=== PATIENT | female | born 1985 | race American Indian/Alaskan Native ===

== ENCOUNTER 2018-11-29 13:19 | Emergency (ER) | payer MEDICAID ==
[2018-11-29] MEDS ORDERED: LACTATED RINGERS 500 ML IV ONE (13:21)
[2018-11-29 13:45] VITALS: BP 101/55
[2018-11-29] MEDS ORDERED: LACTATED RINGERS 1,000 ML IV SCH (14:00)
[2018-11-29] MEDS ORDERED: PROVENTIL IH STA (14:40)
[2018-11-29 14:45] LABS: Bacteria,Urine 1+ /HPF (Negative); Bilirubin,Urine NEG (Negative); Blood,Urine NEG (Negative); Calcium Oxalate Crystals,Urine 1+; Color,Urine Yellow (Yellow); Mucus,Urine FEW /HPF; Protein,Urine <15 mg/dL mg/dL (Negative)
--- NOTE | 2018-11-29 14:49 | Emergency Department Report ---
Blank Doc - Documentation Documentation: 33 y/o female presents to Ed c/o wheezing, cough with green mucus and coryza. NO abdominal pain or discharge his initial assessment/diagnostic orders/clinical plan/treatment(s) is/are subject to change based on patient's health status, clinical progression and re-assessment by fellow clinical providers in the ED. Further treatment and workup at subsequent clinical providers discretion. Patient/guardians urged not to elope from the ED as their condition may be serious if not clinically assessed and managed. Initial orders include: cxr
--- NOTE | 2018-11-29 16:15 | Emergency Department Report ---
ED General Adult HPI - General Chief complaint: Pain General Time Seen by Provider: 11/29/18 15:27 Source: family Mode of arrival: Wheelchair Limitations: No Limitations - History of Present Illness Initial comments: Patient is a 33-year-old female who is presenting with 3 days of cough cold congestion and sinus tenderness. Patient is 20 weeks was seen to our labor and delivery Center initially and have labor ruled out. Patient is here stating that she's had sinus pressure with a mild cough. Patient also states that she's had 8/10 pain in the mid face. Patient has a mild sore throat. Body aches are present. Patient denies vaginal discharge or dysuria at this time. Severity scale (0 -10): 9 - Related Data Previous Rx's Medication Instructions Recorded Last Taken Type Amoxicillin/Potassium Clav 1 each PO BID #14 tablet 11/29/18 Unknown Rx [Augmentin 875-125 Tablet] Fluticasone [Flonase] 1 spray NS QDAY #1 bottle 11/29/18 Unknown Rx Nitrofurantoin Tensas/M-Cryst 100 mg PO Q12HR #10 capsule 11/29/18 Unknown Rx [Macrobid CAP] Allergies Allergy/AdvReac Type Severity Reaction Status Date / Time No Known Allergies Allergy Verified 11/29/18 13:20 ED Review of Systems ROS: Stated complaint: Other details as noted in HPI Comment: All other systems reviewed and negative ED Past Medical Hx - Past Medical History Hx Hypertension: No Hx Diabetes: No Hx Deep Vein Thrombosis: No Hx Renal Disease: No Hx Sickle Cell Disease: No Hx Seizures: No Hx Asthma: No Hx HIV: No - Social History Smoking Status: Current Every Day Smoker - Medications Home Medications: Home Medications Medication Instructions Recorded Confirmed Last Taken Type Amoxicillin/Potassium Clav 1 each PO BID #14 tablet 11/29/18 Unknown Rx [Augmentin 875-125 Tablet] Fluticasone [Flonase] 1 spray NS QDAY #1 bottle 11/29/18 Unknown Rx Nitrofurantoin Tensas/M-Cryst 100 mg PO Q12HR #10 capsule 11/29/18 Unknown Rx [Macrobid CAP] ED Physical Exam - General Limitations: No Limitations General appearance: alert, in no apparent distress - Head Head exam: Present: atraumatic, normocephalic - Expanded Head Exam Expanded 1 - sinus tenderness - Eye Eye exam: Present: normal appearance - ENT ENT exam: Present: mucous membranes moist - Neck Neck exam: Present: normal inspection, full ROM. Absent: meningismus - Respiratory Respiratory exam: Present: normal lung sounds bilaterally. Absent: respiratory distress, wheezes, rales, rhonchi - Cardiovascular Cardiovascular Exam: Present: regular rate, normal rhythm. Absent: normal heart sounds, systolic murmur, diastolic murmur, rubs, gallop - GI/Abdominal GI/Abdominal exam: Present: soft, normal bowel sounds. Absent: distended, tenderness, guarding - Extremities Exam Extremities exam: Present: normal inspection - Back Exam Back exam: Present: normal inspection - Neurological Exam Neurological exam: Present: alert, oriented X3 - Psychiatric Psychiatric exam: Present: normal affect, normal mood - Skin Skin exam: Present: warm, dry, intact, normal color. Absent: rash ED Course Vital Signs 11/29/18 11/29/18 13:42 13:44 Temperature 98.4 F Pulse Rate 76 87 Respiratory 20 Rate Blood Pressure 101/55 O2 Sat by Pulse 100 Oximetry ED Medical Decision Making - Medical Decision Making Patient will be empirically treated for acute sinusitis with Augmentin. Patient also has a occult urinary tract infection. Patient started on Macrobid as well. Critical care attestation.: If time is entered above; I have spent that time in minutes in the direct care of this critically ill patient, excluding procedure time. ED Disposition Clinical Impression: UTI in Acute sinusitis Qualifiers: Sinusitis location: ethmoidal Recurrence: recurrent Qualified Code(s): J01.21 - Acute recurrent ethmoidal sinusitis Disposition: TO HOME OR SELFCARE Is pt being admited?: No Does the pt Need Aspirin: No Condition: Stable Instructions: Urinary Tract Infection in Women (ED), Sinusitis (ED) Referrals: JOSH JOHNSON MD [Primary Care Provider] - 3-5 Days Time of Disposition: 16:14
== END 2018-11-29 16:27 | disposition home or self-care (01) ==
LOC: ED 13:19 → TRG 13:19 → LD 13:26 → EDSTATUS 14:34 → ED 16:27
DX: O99.512 Diseases of the respiratory system complicating pregnancy, second trimester (principal); J06.9 Acute upper respiratory infection, unspecified; J01.20 Acute ethmoidal sinusitis, unspecified; O99.332 Smoking (tobacco) complicating pregnancy, second trimester; Z79.899 Other long term (current) drug therapy; Z3A.20 20 weeks gestation of pregnancy
CPT/HCPCS: 81001; 87086; 99284

== ENCOUNTER 2019-02-14 02:31 | Outpatient (CLI) | payer MEDICAID ==
[2019-02-14] MEDS ORDERED: LACTATED RINGERS 1,000 ML IV ONE (02:38)
[2019-02-14 03:25] LABS: Bilirubin,Urine NEG (Negative); Blood,Urine NEG (Negative); Color,Urine Yellow (Yellow); Protein,Urine <15 mg/dL mg/dL (Negative); Urobilinogen,Urine < 2.0 mg/dL (<2.0)
[2019-02-14] MEDS ORDERED: LACTATED RINGERS 1000 ML IV SOLN ONE (03:45)
[2019-02-14] MEDS ORDERED: ceFAZolin/Water 2 GM/20 ML 2 GM/20 ML SYRINGE IV ONE ×2 (03:56→04:00)
[2019-02-14] MEDS ORDERED: TERBUTALINE 1 MG/1 ML INJ SUB-Q ONE (04:45)
[2019-02-14] MEDS ORDERED: ACETAMINOPHEN 500 MG TAB PO ONE (04:45)
[2019-02-14] MEDS ORDERED: ONDANSETRON 4 MG/2 ML INJ IM ONE (04:46)
[2019-02-14 04:57] VITALS: BP 114/71
[2019-02-14] MEDS ORDERED: ONDANSETRON 4 MG/2 ML INJ ONE (05:00)
[2019-02-14] MEDS ORDERED: ONDANSETRON 4 MG/2 ML INJ IV ONE (05:00)
== END 2019-02-14 05:37 | disposition home or self-care (01) ==
LOC: TRG 02:31
PROVIDERS: ATTEND Obstetrics & Gynecology
DX: O62.9 Abnormality of forces of labor, unspecified (principal); O21.2 Late vomiting of pregnancy; O99.333 Smoking (tobacco) complicating pregnancy, third trimester; F17.200 Nicotine dependence, unspecified, uncomplicated; O99.323 Drug use complicating pregnancy, third trimester; F12.90 Cannabis use, unspecified, uncomplicated; Z3A.31 31 weeks gestation of pregnancy; Z90.49 Acquired absence of other specified parts of digestive tract
CPT/HCPCS: 59025; 81001; 96361; 96374; 96375; J0690; J2405; J7120; 96360; 96365; J3105

== ENCOUNTER 2019-03-07 16:03 | Outpatient (CLI) | payer MEDICAID ==
[2019-03-07] MEDS ORDERED: LACTATED RINGERS 500 ML IV ONE (16:21)
[2019-03-07 17:04] LABS: Bilirubin,Urine NEG (Negative); Blood,Urine NEG (Negative); Color,Urine Yellow (Yellow); Protein,Urine <15 mg/dL mg/dL (Negative)
[2019-03-07 17:07] LABS: Amphetamine Screen,Urine PRESUMPTIVE NEGATIVE; Benzodiazepines Screen,Urine PRESUMPTIVE NEGATIVE; Cocaine Screen,Urine PRESUMPTIVE NEGATIVE; Methadone Screen,Urine PRESUMPTIVE NEGATIVE; Opiate Screen,Urine PRESUMPTIVE NEGATIVE
[2019-03-07 17:21] LABS: Mucus,Urine Few /HPF
[2019-03-07 17:32] LABS: Cannabinoid Screen,Urine PRESUMPTIVE POSITIVE
[2019-03-07 17:45] LABS: Hepatitis C Virus Antibody Non-Reactive (NonReactive)
[2019-03-07 18:10] VITALS: BP 113/73
== END 2019-03-07 18:40 | disposition home or self-care (01) ==
LOC: TRG 16:03
PROVIDERS: ATTEND Obstetrics & Gynecology
DX: O62.9 Abnormality of forces of labor, unspecified (principal); O09.523 Supervision of elderly multigravida, third trimester; O99.333 Smoking (tobacco) complicating pregnancy, third trimester; F17.200 Nicotine dependence, unspecified, uncomplicated; Z3A.34 34 weeks gestation of pregnancy; Z90.49 Acquired absence of other specified parts of digestive tract
CPT/HCPCS: 36415; 80307; 81001; 85660; 86706; 86762; 86803; 86850; 86900; 86901; 87116; 87806; J7120; 96360